=== PATIENT | female | born 1935 | race African-American/Black ===

== ENCOUNTER → 2019-09-15 | Outpatient (CLI) | payer OTHER ==
[~2019-09-15] VITALS: Ht 160 cm; Wt 56.7 kg
[~2019-09-15] MED LIST: ACETAMINOPHEN500 MG PO; ASA81BEC PO; BACLOFEN 10MG T10 MG PO; FLEXERIL PO; LIPITOR40 MG PO; NORVASC5 MG PO; PLAVIX 75 MG TA75 MG PO
[2019-09-15 12:01] VITALS: BP 135/63
[2019-09-15 12:58] LABS: HEMATOCRIT 41.9 % (37.0-47.0); HEMOGLOBIN 13.8 gm/dL (12.0-15.0); MCH 30.3 pg (26.0-34.0); MCHC 32.9 g/dL (28.0-37.0); MCV 92.1 fL (80.0-100.0); RBC 4.55 mil/uL (4.20-5.00); RDW 13.2 % (10.5-14.5); WBC 9.1 thou/uL (4.0-11.0)
[2019-09-15 13:10] LABS: CALCIUM 11.9 mg/dL (8.5-10.1); CREATININE 0.9 mg/dL (0.6-1.0); POTASSIUM 4.3 mmol/L (3.5-5.1)
== END | disposition home or self-care (01) ==
LOC: CATH 09-07 19:43
PROVIDERS: Nuclear Medicine Nuclear Cardiology
DX: I73.9 Peripheral vascular disease, unspecified (principal); Z53.8 Procedure and treatment not carried out for other reasons; I10 Essential (primary) hypertension; E78.00 Pure hypercholesterolemia, unspecified; I48.91 Unspecified atrial fibrillation; Z86.73 Personal history of transient ischemic attack (TIA), and cerebral infarction without residual deficits; Z98.890 Other specified postprocedural states; Z79.899 Other long term (current) drug therapy
CPT/HCPCS: 62110; 62900; 70005